=== PATIENT | female | born 1985 | race Caucasian/White ===

== ENCOUNTER 2017-01-25 13:18 | Emergency (ER) | payer MEDICAID ==
[~2017-01-25] VITALS: Ht 175.3 cm; Wt 127.3 kg
[~2017-01-25 13:18] MED LIST: AMOXICILLIN 8751 TAB PO; AMOXICILLIN875 MG PO; BACTRIM DS 8001 TAB PO; BENADRYL25 M3 PO; CELEXA40 MG PO; CEPHALEXIN250 M1 PO; CEPHALEXIN250 M2 PO; CHERATUSSIN AC 15 ML PO; DEPRESSION MED; DOXEPIN10 MG PO; DOXEPIN25 MG PO; ED ZITHROM6 TAB/BOTT PO; EPI EZ PEN1 MG/ML IM; ESCITALOPRAM10 MG PO; FAMOTIDINE20 MG PO; FLINTSTONES1 CTB; GAS; GUAIFENESIN AC120 ML PO; HYDROXYZINE HCL25 MG PO; HYDROXYZINE25 MG/ML IM; IBUPROFEN800 MG PO; KENALOG0.1% TP; L-THYROXINE0.075 MG PO; LEVOTHROID0.075 MG PO; MEDROL 4MG DOSPA4 MG PO; NO HOME MEDICATIONS; PEPCID 20MG TAB20 MG PO; PHENERGAN W/CO120 M1 PO; PREDNISONE10 M1 PO; PREDNISONE10 MG PO; PREDNISONE20 M1 PO; SEPTRA DS 800 M1 TA1 PO; TAGAMET800 MG PO; TAMIFLU 75MG75 MG PO; TESSALON PERLE200 MG PO; TRAZODONE50 MG PO; XYAL5 MG PO; ZERIT; ZOFRAN8 MG PO; ZOLOFT 100MG100 MG PO; ZYRTEC10 MG PO
[2017-01-25] MEDS ORDERED: SEPTRA DS 8001 TAB PO (14:04)
[2017-01-25] MEDS ORDERED: KETOROLAC10 MG PO (14:04)
[2017-01-25 14:38] VITALS: BP 156/100
== END 2017-01-25 14:39 | disposition home or self-care (01) ==
LOC: ED 13:18
DX: H60.92 Unspecified otitis externa, left ear (principal); M26.602 Left temporomandibular joint disorder, unspecified; F17.200 Nicotine dependence, unspecified, uncomplicated
CPT/HCPCS: J1885

== ENCOUNTER 2019-10-12 15:20 | Emergency (ER) | payer OTHER ==
[~2019-10-12] VITALS: Ht 175.3 cm; Wt 136.6 kg
[~2019-10-12 15:20] MED LIST changes: +KETOROLAC10 MG PO; +SEPTRA DS 8001 TAB PO
[2019-10-12 16:34] LABS: URINE COLOR YELLOW
[2019-10-12 16:35] LABS: URINE APPEARANCE CLEAR; URINE BILIRUBIN NEGATIVE (NEGATIVE); URINE BLOOD NEGATIVE (NEGATIVE); URINE GLUCOSE NEGATIVE (NEGATIVE); URINE KETONE NEGATIVE (NEGATIVE); URINE LEUKOCYTE ESTERASE 1+ (NEGATIVE); URINE NITRATE NEGATIVE (NEGATIVE); URINE PROTEIN(semi-quant) TRACE mg/dL (NEGATIVE); URINE UROBILINOGEN NORMAL (NORMAL)
[2019-10-12 16:50] LABS: EOS # 0.2 (0.04-0.40); EOS % 2.7 % (1.0-5.0); HEMATOCRIT 36.4 % (37.0-47.0); HEMOGLOBIN 11.8 g/dL (12.5-16.0); LYMPH# 1.5 (1.50-4.00); MEAN CELL VOLUME 83 fl (78-100); MEAN CORPUSCULAR HEMOGLOBIN 27 pg (27-31); MEAN CORPUSCULAR HGB CONC 32 g/dL (33-37); MEAN PLATELET VOLUME 11.2 fl (7.4-10.4); MONO # 0.6 (0.20-0.80); NEU # 3.9 (1.40-6.50); PLATELET COUNT 104 K/mm3 (130-400); RED BLOOD COUNT 4.39 M/mm3 (4.10-5.30); RED CELL DISTRIBUTION WIDTH 14.6 % (11.5-14.5); WHITE BLOOD COUNT 6.3 K/mm3 (4.8-10.8)
[2019-10-12 17:31] LABS: ALBUMIN 4.1 g/dL (3.5-5.0)
[2019-10-12 17:32] LABS: POTASSIUM 4.3 mmol/L (3.5-5.1)
[2019-10-12 17:33] LABS: CALCIUM 8.9 mg/dL (8.3-10.5)
[2019-10-12 17:34] LABS: TOTAL PROTEIN 7.7 g/dL (6.4-8.3)
[2019-10-12 17:36] LABS: TOTAL BILIRUBIN 0.3 mg/dL (0.2-1.2)
[2019-10-12] MEDS ORDERED: VIBRAMYCIN HYC100 MG PO (17:56)
[2019-10-12 18:15] VITALS: BP 118/66
== END 2019-10-12 18:15 | disposition home or self-care (01) ==
LOC: ED 15:20
PROVIDERS: Family Medicine
DX: N39.0 Urinary tract infection, site not specified (principal); L73.2 Hidradenitis suppurativa; F17.210 Nicotine dependence, cigarettes, uncomplicated; Z90.49 Acquired absence of other specified parts of digestive tract; Z88.8 Allergy status to other drugs, medicaments and biological substances
CPT/HCPCS: J0696

== ENCOUNTER 2019-12-11 21:22 | Emergency (ER) | payer OTHER ==
[~2019-12-11] VITALS: Ht 175.3 cm; Wt 138.6 kg
[~2019-12-11 21:22] MED LIST changes: +VIBRAMYCIN HYC100 MG PO
[2019-12-11 22:19] LABS: BASO # 0.1 (0.02-0.10); EOS % 0.5 % (1.0-5.0); HEMATOCRIT 36.3 % (37.0-47.0); HEMOGLOBIN 11.8 g/dL (12.5-16.0); LYMPH# 0.9 (1.50-4.00); MEAN CELL VOLUME 81 fl (78-100); MEAN CORPUSCULAR HEMOGLOBIN 26 pg (27-31); MEAN CORPUSCULAR HGB CONC 33 g/dL (33-37); MEAN PLATELET VOLUME 10.7 fl (7.4-10.4); MONO # 0.5 (0.20-0.80); NEU # 4.2 (1.40-6.50); PLATELET COUNT 266 K/mm3 (130-400); RED BLOOD COUNT 4.48 M/mm3 (4.10-5.30); RED CELL DISTRIBUTION WIDTH 14.5 % (11.5-14.5); WHITE BLOOD COUNT 5.7 K/mm3 (4.8-10.8)
[2019-12-11 22:49] LABS: URINE APPEARANCE CLOUDY; URINE BILIRUBIN NEGATIVE (NEGATIVE); URINE BLOOD TRACE (NEGATIVE); URINE COLOR YELLOW; URINE GLUCOSE NEGATIVE (NEGATIVE); URINE KETONE NEGATIVE (NEGATIVE); URINE LEUKOCYTE ESTERASE TRACE (NEGATIVE); URINE NITRATE NEGATIVE (NEGATIVE); URINE PROTEIN(semi-quant) TRACE mg/dL (NEGATIVE); URINE UROBILINOGEN NORMAL (NORMAL)
[2019-12-11 22:50] LABS: URINE MUCUS PRESENT (NOT PRESENT)
[2019-12-11] MEDS ORDERED: ZOFRAN ODT4 MG PO (23:31)
[2019-12-11 23:45] VITALS: BP 156/83
== END 2019-12-11 23:45 | disposition home or self-care (01) ==
LOC: ED 21:22
PROVIDERS: Family Medicine
DX: B34.9 Viral infection, unspecified (principal); F17.210 Nicotine dependence, cigarettes, uncomplicated; Z20.828 Contact with and (suspected) exposure to other viral communicable diseases

== ENCOUNTER 2020-01-30 02:12 | Emergency (ER) | payer OTHER ==
[~2020-01-30 02:12] MED LIST changes: +ZOFRAN ODT4 MG PO
[2020-01-30 03:16] LABS: EOS # 0.2 (0.04-0.40); EOS % 2.2 % (1.0-5.0); HEMATOCRIT 35.8 % (37.0-47.0); HEMOGLOBIN 11.3 g/dL (12.5-16.0); LYMPH# 2.2 (1.50-4.00); MEAN CELL VOLUME 81 fl (78-100); MEAN CORPUSCULAR HEMOGLOBIN 26 pg (27-31); MEAN CORPUSCULAR HGB CONC 32 g/dL (33-37); MEAN PLATELET VOLUME 10.7 fl (7.4-10.4); MONO # 0.7 (0.20-0.80); NEU # 4.9 (1.40-6.50); PLATELET COUNT 340 K/mm3 (130-400); RED CELL DISTRIBUTION WIDTH 15.1 % (11.5-14.5)
[2020-01-30] MEDS ORDERED: ZOFRAN ODT4 MG PO (03:48)
[2020-01-30] MEDS ORDERED: FAMOTIDINE20 MG PO (03:48)
[2020-01-30 03:57] VITALS: BP 133/96
== END 2020-01-30 03:58 | disposition home or self-care (01) ==
LOC: ED 02:12
PROVIDERS: Family Medicine
DX: O21.9 Vomiting of pregnancy, unspecified (principal); Z87.891 Personal history of nicotine dependence; Z3A.01 Less than 8 weeks gestation of pregnancy

== ENCOUNTER → 2021-05-10 | Outpatient (CLI) | payer BC, MEDICAID | LOC: LAB 16:08 | DX: L08.9 Local infection of the skin and subcutaneous tissue, unspecified (principal) ==

== ENCOUNTER → 2021-05-21 | Outpatient (CLI) | payer BC, MEDICAID ==
[2021-05-21 17:08] LABS: ALBUMIN 3.8 g/dL (3.5-5.0)
[2021-05-21 17:09] LABS: CALCIUM 9.1 mg/dL (8.3-10.5)
[2021-05-21 17:10] LABS: TOTAL PROTEIN 7.2 g/dL (6.4-8.3)
[2021-05-21 17:12] LABS: TOTAL BILIRUBIN 0.2 mg/dL (0.2-1.2)
[2021-05-21 17:18] LABS: BASO # 0.05 K/mm3 (0.02-0.10); EOS # 0.11 K/mm3 (0.04-0.40); EOS % 1.3 % (1.0-5.0); HEMATOCRIT 32.3 % (37.0-47.0); HEMOGLOBIN 10.1 g/dL (12.5-16.0); LYMPH# 2.67 K/mm3 (1.50-4.00); MEAN CELL VOLUME 76 fl (78-100); MEAN CORPUSCULAR HEMOGLOBIN 24 pg (27-31); MEAN CORPUSCULAR HGB CONC 31 g/dL (33-37); MEAN PLATELET VOLUME 10.4 fl (7.4-10.4); MONO # 0.36 K/mm3 (0.20-0.80); NEU # 5.54 K/mm3 (1.40-6.50); PLATELET COUNT 414 K/mm3 (130-400); RED BLOOD COUNT 4.28 M/mm3 (4.10-5.30); RED CELL DISTRIBUTION WIDTH 17.3 % (11.5-14.5); WHITE BLOOD COUNT 8.7 K/mm3 (4.8-10.8)
== END ==
LOC: LAB 16:31
PROVIDERS: Family Medicine
DX: Z00.00 Encounter for general adult medical examination without abnormal findings (principal); E78.5 Hyperlipidemia, unspecified; E66.9 Obesity, unspecified; E03.9 Hypothyroidism, unspecified; E55.9 Vitamin D deficiency, unspecified

== ENCOUNTER → 2021-07-08 | Outpatient (CLI) | payer MEDICAID | LOC: LAB 10:00 | DX: R23.8 Other skin changes (principal); L28.2 Other prurigo ==

== ENCOUNTER → 2021-08-26 | Outpatient (CLI) | payer MEDICAID ==
[2021-08-26 14:13] LABS: BASO # 0.08 K/mm3 (0.02-0.10); EOS # 0.14 K/mm3 (0.04-0.40); EOS % 1.8 % (1.0-5.0); HEMATOCRIT 37.3 % (37.0-47.0); LYMPH# 2.28 K/mm3 (1.50-4.00); MEAN CELL VOLUME 81 fl (78-100); MEAN CORPUSCULAR HEMOGLOBIN 26 pg (27-31); MEAN CORPUSCULAR HGB CONC 32 g/dL (33-37); MEAN PLATELET VOLUME 10.3 fl (7.4-10.4); MONO # 0.44 K/mm3 (0.20-0.80); NEU # 4.95 K/mm3 (1.40-6.50); PLATELET COUNT 347 K/mm3 (130-400); RED BLOOD COUNT 4.58 M/mm3 (4.10-5.30); RED CELL DISTRIBUTION WIDTH 16.7 % (11.5-14.5); WHITE BLOOD COUNT 7.9 K/mm3 (4.8-10.8)
[2021-08-26 14:25] LABS: ALBUMIN 3.9 g/dL (3.5-5.0); POTASSIUM 3.9 mmol/L (3.5-5.1)
[2021-08-26 14:26] LABS: CALCIUM 9.2 mg/dL (8.3-10.5)
[2021-08-26 14:27] LABS: TOTAL PROTEIN 7.3 g/dL (6.4-8.3)
[2021-08-26 14:29] LABS: TOTAL BILIRUBIN 0.2 mg/dL (0.2-1.2)
[2021-08-26 21:29] LABS: HEPATITIS B CORE AB TOTAL Negative (Negative); HEPATITIS B SURFACE ANTIBODY <2.0 (()); HEPATITIS B SURFACE ANTIGEN Negative (Negative); HEPATITIS C VIRUS ANTIBODY Negative (Negative)
[2021-08-27 17:02] LABS: TB GOLD INTERPRETATION.TB GOLD Negative (Negative)
== END ==
LOC: LAB 13:42
PROVIDERS: Nurse Practitioner Family
DX: Z79.899 Other long term (current) drug therapy (principal)

== ENCOUNTER → 2021-09-18 | Outpatient (CLI) | payer MEDICAID ==
[2021-09-18 16:17] LABS: HEMATOCRIT 36.4 % (37.0-47.0); HEMOGLOBIN 11.6 g/dL (12.5-16.0); MEAN PLATELET VOLUME 10.2 fl (7.4-10.4); RED BLOOD COUNT 4.42 M/mm3 (4.10-5.30); RED CELL DISTRIBUTION WIDTH 15.5 % (11.5-14.5); WHITE BLOOD COUNT 7.4 K/mm3 (4.8-10.8)
== END ==
LOC: LAB 15:51
PROVIDERS: Family Medicine
DX: M25.522 Pain in left elbow (principal); L73.2 Hidradenitis suppurativa; E03.9 Hypothyroidism, unspecified; E55.9 Vitamin D deficiency, unspecified; D50.9 Iron deficiency anemia, unspecified; E66.9 Obesity, unspecified